=== PATIENT | male | born 1940 | race Caucasian/White ===

== ENCOUNTER 2017-05-03 05:36 | Inpatient (IN) | payer MEDICARE ==
[2017-05-03 09:26] LABS: Troponin I 0.127 ng/mL (< 0.028)
[2017-05-03 11:53] LABS: Troponin I 0.118 ng/mL (< 0.028)
--- NOTE | 2017-05-03 11:59 | HP ---
HISTORY OF PRESENT ILLNESS: Mr. Perez is a 76-year-old man. He came to this facility earlier today with complaint of shortness of breath, which suddenly got worse while he was sleeping. He came to the ER. He is being admitted for management and evaluation. He denies any associated fever. He does have a history of chronic cough. Denies any chest pain and he uses oxygen at home. PAST MEDICAL HISTORY: He is not known to have any history of COPD, hypertension, coronary artery dis ease, TIA and also he claims that he has asthma since childhood. PAST SURGICAL HISTORY: Remarkable for left carotid endarterectomy. ALLERGIES: He has an allergy to VANCOMYCIN. SOCIAL HISTORY: He has a [id number] history of cigarette smoking. He drinks two cans of beer ever y night. FAMILY HISTORY: Reviewed and is not contributory. MEDICATIONS: Prior to admission, he was on aspirin 81 mg daily, digoxin 0.125 mg daily, Toprol-XL 50 mg daily, Ventolin inhaler. REVIEW OF SYSTEMS: CONSTITUTIONAL: Denies any fever, denies weakness. HEENT: No headache. No ocular pain, no sore throat, no rhinorrhea, no earache, no epistaxis. NECK: No neck pain, no neck stiffness. CARDIOVASCULAR: Admits to shortness of breath. No chest pain. PULMONARY: He has chronic dry cough. GASTROINTESTINAL: No nausea, no vomiting, no diarrhea, no abdominal pain. GENITOURINARY: No dysuria, no hematuria. MUSCULOSKELETAL: Denies arthralgia, denies myalgia. SKIN: No rash, no itching. HEMATOLOGY: No abnormal bleeding, no ecchymosis. LYMPHATIC: No palpable lymphadenopathy, no painful lymphadenopathy. ENDOCRINOLOGY: No heat or cold intolerance. No polyuria, polydipsia, polyphagia. ALLERGIES: No hayfever. PSYCHIATRIC: No anxiety, no depression. NEUROLOGIC: No seizure. PHYSICAL EXAMINATION: GENERAL: At the current time, he is alert, oriented, receiving oxygen via nasal cannula. VITAL SIGNS: His latest vital signs show temperature of 98.1, pulse rate 82 regular, respiratory rat e 18, blood pressure 136/74. HEENT: Head is normocephalic and atraumatic. Both pupils are equally reactive. Ears and nose jermaine l. Oral mucosa is moist. Pharyngeal area is clear. NECK: Supple. There is no distention of the jugular vein. No lymphadenopathy felt. Thyroid gland not palpable. There is no carotid bruit. CHEST: Symmetrical with regular S1, S2. LUNGS: Show diffuse wheezing. ABDOMEN: Soft. Bowel sounds heard. Could not appreciate any organomegaly. There is no focal area of tenderness. EXTREMITIES: Limbs show no edema. NEUROLOGIC: He moves all extremities. LABORATORY DATA: His chemistry and electrolytes done at [facility] show a sodium of 143, potas sium 5.1, chloride 105, CO2 24, BUN 21, creatinine 1.3, glucose 132, calcium 8.8, total bilirubin 0.4 , total protein 7. Troponin was noticed to be elevated at 0.15. CT angiogram done and was negative. CBC showed WBC of 10.5, hemoglobin of 14, hematocrit of 42.8, MCV of 100.4, platelet of 153. D-dim er was elevated at 0.48 and as mentioned earlier, CT angiogram was negative. Chest x-ray done from [facility] was reported to show left lower lobe infiltrate which is chronic according to the report. ASSESSMENT AND PLAN: This is a 76-year-old man with history of hypertension, coronary jolanta ry disease, previous transient ischemic attack, chronic obstructive pulmonary disease who is being ad mitted for acute exacerbation of chronic obstructive pulmonary disease. The patient was noticed to h ave an elevated troponin. We will get Cardiology input. Will follow up troponins and he wants to be full code. He will be admitted to telemetry. Please see orders.
[2017-05-03] MEDS ORDERED: Ondansetron ODT 4 MG TAB PO PRN (12:28)
[2017-05-03] MEDS ORDERED: Bisacodyl 5 MG TAB PO PRN (12:28)
[2017-05-03 12:29] VITALS: BMI 23.6
[2017-05-03 12:55] LABS: Anion Gap 15 mmol/L (10-20); BUN (Urea Nitrogen) 21 mg/dL (8.4-25.7); BUN/Creatinine Ratio 15.11; Calc. Creatinine Clearance 50 mL/min (70-130); Calcium 9.1 mg/dL (7.8-10.44); Carbon Dioxide 29 mmol/L (23-31); Chloride 100 mmol/L (98-107); Estimated GFR-MDRD 50; Phosphorus 3.2 mg/dL (2.3-4.7)
[2017-05-03 13:03] LABS: Hematocrit 41.8 % (42.0-52.0); Red Blood Cell (RBC) Count 4.06 mill/uL (4.70-6.10); White Blood Cell (WBC) Count 6.5 thou/uL (4.8-10.8)
[2017-05-03] MEDS: Sodium Chloride 0.9% 1,000 ML IV SCH (13:25)
[2017-05-03 13:32] LABS: Band 9 % (5-11); Macrocytosis SLIGHT = 6-15 cells (100X) (0-5/hpf); Neutrophil 78 % (42-75); Reactive Lymphocytes 2 % (0-10)
[2017-05-03 15:11] LABS: Troponin I 0.119 ng/mL (< 0.028)
[2017-05-03] MEDS ORDERED: Digoxin 0.125 MG TAB PO SCH (15:30)
[2017-05-03] MEDS: Budesonide 0.25 MG/2 ML NEB INH SCH (19:25)
[2017-05-03] MEDS: Mometasone 100 MCG HFA INHALER INH SCH (19:28)
[2017-05-03] MEDS ORDERED: Sodium Chloride 0.9% 10 ML ONE (20:41)
[2017-05-03] MEDS: Famotidine 20 MG TAB PO SCH (21:12)
[2017-05-03] MEDS: methylPREDNISolone Sod Succ/PF 125 MG/2 ML VIAL IVP SCH (21:12)
[2017-05-03] MEDS: Nicotine 21 MG PATCH TD SCH (21:15)
[2017-05-04] MEDS: Mometasone 100 MCG HFA INHALER INH SCH ×2 (07:25→19:10)
[2017-05-04] MEDS: Budesonide 0.25 MG/2 ML NEB INH SCH ×2 (07:25→19:09)
[2017-05-04] MEDS: Enoxaparin Sodium 40 MG/0.4 ML SYRINGE SC SCH (07:50)
[2017-05-04] MEDS: Sodium Chloride 0.9% 1,000 ML IV SCH (07:50)
[2017-05-04] MEDS: Digoxin 0.125 MG TAB PO SCH (07:51)
[2017-05-04] MEDS: methylPREDNISolone Sod Succ/PF 125 MG/2 ML VIAL IVP SCH ×2 (07:51→20:50)
[2017-05-04] MEDS: Famotidine 20 MG TAB PO SCH ×2 (07:52→20:50)
[2017-05-04] MEDS ORDERED: FLU VACC TS2017-18 (>65YR) 0.5 ML SYRINGE IM ONE (09:00)
[2017-05-04] MEDS ORDERED: Digoxin 0.125 MG TAB PO SCH (09:00)
[2017-05-04] MEDS ORDERED: Cefdinir 300 MG CAP PO SCH (10:30)
--- NOTE | 2017-05-04 13:39 | PDOC.FM ---
- Subjective Subjective: Transfer of care from [facility]. PCP is Dr. Aguilera. Patient presented with sudden onset dyspnea. He denies any prior history of sudden onset shortness of breath. Patient has a history of an KS and cardio diagnosed in Jun/Jul. He was sent home on antibiotics after that hospitalization. He returned less than a month later with a second infection. At some point he was told he had an infection of the heart, which was presumably endocarditis. He does have history of COPD for which he has an oxygen tank at home. He only uses his oxygen PRN. Patient denies PND or lower extremity swelling. He denies fever or chills. Patient does endorse a mild, dry cough. - Objective MAR Reviewed: Yes Vital Signs & Weight: Vital Signs (12 hours) Temp Pulse Resp BP Pulse Ox 05/04/17 12:15 98.0 F 94 16 155/81 H 92 L 05/04/17 08:05 97.9 F 82 16 05/04/17 08:02 97.9 F 82 16 140/73 93 L 05/04/17 07:25 87 20 92 L 05/04/17 07:23 87 20 92 L 05/04/17 04:26 98.3 F 82 20 147/70 H 94 L 05/04/17 02:00 79 18 93 L 05/04/17 01:56 87 20 92 L Weight Weight 76.566 kg I&O: 05/03/17 05/04/17 05/05/17 06:59 06:59 06:59 Intake Total 1793 Output Total 1300 300 Balance 493 -300 Result Diagrams: 05/03/17 08:27 05/03/17 11:17 EKG Reviewed by me: No Radiology Reviewed by me: Yes <Alise Coleman - Last Filed: 05/04/17 14:03> - Objective Vital Signs & Weight: Vital Signs (12 hours) Temp Pulse Resp BP Pulse Ox 05/04/17 12:15 98.0 F 94 16 155/81 H 92 L 05/04/17 08:05 97.9 F 82 16 05/04/17 08:02 97.9 F 82 16 140/73 93 L 05/04/17 07:25 87 20 92 L 05/04/17 07:23 87 20 92 L 05/04/17 04:26 98.3 F 82 20 147/70 H 94 L Weight Weight 168 lb 12.8 oz I&O: 05/03/17 05/04/17 05/05/17 06:59 06:59 06:59 Intake Total 1793 Output Total 1300 300 Balance 493 -300 Result Diagrams: 05/03/17 08:27 05/03/17 11:17 <Harry Bowles - Last Filed: 05/04/17 14:08> Phys Exam - Physical Examination Constitutional: NAD HEENT: PERRLA, moist MMs, sclera anicteric Neck: supple Diffuse wheezing Cardiovascular: RRR, no significant murmur Gastrointestinal: soft, non-tender, no distention Musculoskeletal: no edema, pulses present Neurological: non-focal Psychiatric: A&O x 3 Skin: cap refill <2 seconds <Alise Coleman - Last Filed: 05/04/17 14:03> Dx/Plan (1) COPD exacerbation Code(s): J44.1 - CHRONIC OBSTRUCTIVE PULMONARY DISEASE W (ACUTE) EXACERBATION Status: Acute (2) Coronary artery disease Code(s): I25.10 - ATHSCL HEART DISEASE OF [place] CORONARY ARTERY W/O ANG PCTRS Status: Chronic (3) History of cardioembolic cerebrovascular accident (CVA) Code(s): Z86.73 - PRSNL HX OF TIA (TIA), AND CEREB INFRC W/O RESID DEFICITS Status: Chronic (4) HTN (hypertension) Code(s): I10 - ESSENTIAL (PRIMARY) HYPERTENSION Status: Chronic QualifierTitle: Hypertension type: essential hypertension Qualified Code( s): I10 - Essential (primary) hypertension - Plan Plan: Plan: 1. COPD with exacerbation - Symptomatic COPD exacerbation (wheezing, cough) - Duonebs - Steroids - Continue cefdinir - Oxygen PRN - Restart home medications; encourage use of home medications 2. HTN - Fairly well controlled - Home medications include metoprolol 3. CAD - On BB - Continue ASA 4. Hx of cardioembolic cerebral vascular accident - Continue ASA <Alise Coleman - Last Filed: 05/04/17 14:03> Attending Addendum - Attending Addendum I personally evaluated the patient and discussed the management with Dr. Coleman I agree with the History, Examination, Assessment and Plan documented above with any addition or exceptions noted below. <Harry Bowles - Last Filed: 05/04/17 14:08>
[2017-05-04] MEDS: Cefdinir 300 MG CAP PO SCH (20:50)
[2017-05-04] MEDS: guaiFENesin ER 600 MG TAB PO SCH (20:50)
[2017-05-04] MEDS: Nicotine 21 MG PATCH TD SCH (20:53)
[2017-05-05] MEDS ORDERED: Albuterol Sulfate 2.5 mg/3 ml Neb NEB SCH (01:45)
[2017-05-05] MEDS ORDERED: Acetaminophen 325 MG TAB PO PRN (02:29)
[2017-05-05 02:32] LABS: Oxyhemoglobin 96.6 % (94.0-97.0)
[2017-05-05 02:33] LABS: Modified Allen's Test POSITIVE; Sodium 139 mmol/L (135-148); Vent NO
[2017-05-05 02:34] LABS: Mode Nasal Cannula
[2017-05-05 02:48] LABS: Troponin I 0.074 ng/mL (< 0.028)
--- NOTE | 2017-05-05 04:27 | PDOC.EVN ---
Event Note - Event Note Event Note: Called to inform patient has increased work of breathing, RR and o2 requirement. Patient was breathing about 24 times a minute and had diffuse wheezing. he stated recent duoneb treatment improved his breathing significantly but he was still SOB. HR was 92. He had CTA yesterday to rule out PE and he had no new leg pain or swelling and was on ppx lovenox. He did not have chest pain or pressure. Working diagnosis was COPD exacerbation. Ordered albuterol treatment, ABG, CXR , and troponin. Reevaluated patient after intervention. Wheezing still present but now more comfortably with less WOB. RR decreased to 20. ABG showed 51 of CO2 consistent with respiratory acidosis consistent with COPD. EKG was unchanged from previous. Troponin was down trending from prior. CXR was unchanged from previous. With improved clinical status, it was decided to not order CTA or D dimer at this time. Scheduled duonebs q4 for improved treatment of his COPD, continued steroids. Decreased o2 based on ABG.
--- NOTE | 2017-05-05 06:26 | PDOC.FM ---
Addendum entered and electronically signed by Adonis Epps DO 05/05/17 09: 59: Upper Level Note: Patient breathing improved this morning. He reports no shortness of breath or chest pain this morning Vitals BP 172/86 RR 16 O2 95% on 2L Temp 98.6 Exam: NAD, A&Ox3. Regular rate and rhythm with no murmurs, rubs, or gallops. Lungs with diffuse wheezing. Work of breathing improved A/P: 1) COPD with exacerbation - Continue steroids, antibiotics, and scheduled DuoNebs. Continue oxygen supplementation. Likely needs more time on these medications to return to baseline 2) Htn - Home meds Agree with assessment and plan as listed by Dr. Coleman Original Note: - Subjective Subjective: Patient doing well this AM. He did have an episode last night where he got short of breath and tachypneic. The night team went to evaluate him at that time. A nebulizer treatment was ordered, and his shortness of breath improved. However, the wheezing remained diffuse. An ABG was ordered which showed elevated CO2 consistent with COPD. CXR was performed which was unchanged from previous imaging. Patient is doing much better this morning symptomatically, although he does continue to have diffuse wheezing throughout. He denies any shortness of breath, chest pain, or edema. - Objective MAR Reviewed: Yes Vital Signs & Weight: Vital Signs (12 hours) Temp Pulse Resp BP Pulse Ox 05/05/17 03:43 98.8 F 104 H 18 172/88 H 92 L 05/05/17 02:15 62 20 95 05/05/17 00:51 104 H 20 92 L 05/05/17 00:50 94 L 05/05/17 00:39 94 L 05/04/17 19:35 99.1 F 90 20 145/72 H 91 L 05/04/17 19:09 102 H 20 94 L Weight Weight 76.158 kg I&O: 05/03/17 05/04/17 05/05/17 06:59 06:59 06:59 Intake Total 1793 700 Output Total 1300 1000 Balance 493 -300 Result Diagrams: 05/03/17 08:27 05/03/17 11:17 EKG Reviewed by me: Yes Radiology Reviewed by me: Yes <Alise Coleman - Last Filed: 05/05/17 08:27> - Objective Vital Signs & Weight: Vital Signs (12 hours) Temp Pulse Resp BP Pulse Ox 05/05/17 10:10 91 16 94 L 05/05/17 09:25 110 H 05/05/17 08:10 98.1 F 57 L 20 150/70 H 94 L 05/05/17 07:16 93 16 95 05/05/17 07:15 86 16 95 05/05/17 07:13 86 16 95 05/05/17 03:43 98.8 F 104 H 18 172/88 H 92 L 05/05/17 02:15 62 20 95 05/05/17 00:51 104 H 20 92 L 05/05/17 00:50 94 L 05/05/17 00:39 94 L Weight Weight 167 lb 14.4 oz I&O: 05/04/17 05/05/17 05/06/17 06:59 06:59 06:59 Intake Total 1793 700 Output Total 1300 1000 Balance 493 -300 Result Diagrams: 05/05/17 08:40 05/05/17 08:40 <Harry Bowles - Last Filed: 05/05/17 10:52> Phys Exam - Physical Examination Constitutional: NAD HEENT: moist MMs, sclera anicteric Neck: supple Respiratory: wheezing present Diffuse wheezing throughout Cardiovascular: RRR Distanat heart sounds Gastrointestinal: soft, non-tender, no distention, positive bowel sounds Musculoskeletal: pulses present Neurological: non-focal, moves all 4 limbs Psychiatric: A&O x 3 Skin: cap refill <2 seconds <Alise Coleman - Last Filed: 05/05/17 08:27> Dx/Plan (1) COPD exacerbation Code(s): J44.1 - CHRONIC OBSTRUCTIVE PULMONARY DISEASE W (ACUTE) EXACERBATION Status: Acute (2) Coronary artery disease Code(s): I25.10 - ATHSCL HEART DISEASE OF [place] CORONARY ARTERY W/O ANG PCTRS Status: Chronic (3) History of cardioembolic cerebrovascular accident (CVA) Code(s): Z86.73 - PRSNL HX OF TIA (TIA), AND CEREB INFRC W/O RESID DEFICITS Status: Chronic (4) HTN (hypertension) Code(s): I10 - ESSENTIAL (PRIMARY) HYPERTENSION Status: Chronic QualifierTitle: Hypertension type: essential hypertension Qualified Code( s): I10 - Essential (primary) hypertension - Plan Plan: 1. COPD with exacerbation - COPD exacerbation - Duonebs - Steroids - Continue cefdinir - Oxygen PRN - Restart home medications; encourage use of home medications - ABG ordered yesterday which showed elevated CO2 consistent with COPD - CXR ordered last night which was unchanged from previous CXR - Troponins downtrended - EKG nml 2. HTN - Fairly well controlled - Home medications include metoprolol 3. CAD - On BB - Continue ASA 4. Hx of cardioembolic cerebral vascular accident - Continue ASA <Alise Coleman - Last Filed: 05/05/17 08:27> Attending Addendum - Attending Addendum I personally evaluated the patient and discussed the management with Dr. Coleman I agree with the History, Examination, Assessment and Plan documented above with any addition or exceptions noted below. Patient is still having some problems breathing as noted above. He is requiring 2liters Oxygen now. He has O2 at home, although he rarely uses it. We will continue steroids, nebulizer, and antibiotics. He is still wheezing. Follow closely. <Harry Bowles - Last Filed: 05/05/17 10:52>
[2017-05-05] MEDS: Budesonide 0.25 MG/2 ML NEB INH SCH ×2 (07:15→18:54)
[2017-05-05] MEDS: Mometasone 100 MCG HFA INHALER INH SCH ×2 (07:16→18:55)
--- NOTE | 2017-05-05 07:22 | RAD ---
PORTABLE CHEST 1 VIEW: Date: 05/05/17 Time: 0109 hours HISTORY: Shortness of breath. FINDINGS: Comparison made with exam of 05/03/17. The heart size is normal. The aorta is tortuous. Chronic changes in the lung diamond are again seen bi laterally. No lobar consolidation, pneumothoraces, or pleural effusions are identified. IMPRESSION: No acute process. POS: OFF
[2017-05-05 09:07] LABS: #Lymphocytes 0.8 thou/uL (1.20-3.40); #Monocytes 0.7 thou/uL (0.11-0.59); #Neutrophils 9.5 thou/uL (1.40-6.50); %Basophils 0.2 % (0.0-1.0); %Eosinophils 0.2 % (0.0-10.0); %Lymphocytes 6.9 % (21.0-51.0); %Monocytes 6.6 % (0.0-10.0); Hematocrit 40.1 % (42.0-52.0); Mean Platelet Volume 9.7 fL (7.4-10.4); Red Blood Cell (RBC) Count 3.89 mill/uL (4.70-6.10)
[2017-05-05] MEDS: Cefdinir 300 MG CAP PO SCH ×2 (09:25→20:47)
[2017-05-05] MEDS: Digoxin 0.125 MG TAB PO SCH (09:25)
[2017-05-05] MEDS: Famotidine 20 MG TAB PO SCH ×2 (09:25→20:47)
[2017-05-05] MEDS: Enoxaparin Sodium 40 MG/0.4 ML SYRINGE SC SCH (09:27)
[2017-05-05] MEDS: guaiFENesin ER 600 MG TAB PO SCH ×2 (09:27→20:47)
[2017-05-05] MEDS: methylPREDNISolone Sod Succ/PF 125 MG/2 ML VIAL IVP SCH (09:27)
[2017-05-05 09:30] LABS: Anion Gap 12 mmol/L (10-20); BUN (Urea Nitrogen) 31 mg/dL (8.4-25.7); Calc. Creatinine Clearance 54 mL/min (70-130); Calcium 8.9 mg/dL (7.8-10.44); Carbon Dioxide 31 mmol/L (23-31); Chloride 103 mmol/L (98-107); Estimated GFR-MDRD 55
[2017-05-05] MEDS: Nicotine 21 MG PATCH TD SCH (20:47)
--- NOTE | 2017-05-06 05:50 | PDOC.FM ---
- Subjective Subjective: Patient doing well this AM. No significant overnight events. Patient denies shortness of breath or chest pain. He does report that his cough has become productive. He denies fever or chills. Patient expressed desire to go home. Explained that he would need to continue therapy as outpatient and follow closely with PCP to ensure resolution of symptoms. Patient was in agreement with this plan. The need for the addition of a BP medication was discussed. Patient was in agreement with the addition of BP medication. - Objective MAR Reviewed: Yes Vital Signs & Weight: Vital Signs (12 hours) Temp Pulse Resp BP Pulse Ox 05/06/17 04:00 97.9 F 88 18 175/99 H 96 05/06/17 01:34 91 18 90 L 05/06/17 00:00 98.3 F 84 20 158/76 H 90 L 05/05/17 22:10 97 16 97 05/05/17 20:50 97.7 F 93 20 93 L 05/05/17 20:45 97.7 F 93 20 170/91 H 93 L 05/05/17 18:52 89 16 91 L Weight Weight 76.158 kg I&O: 05/04/17 05/05/17 05/06/17 06:59 06:59 06:59 Intake Total 1793 700 Output Total 1300 1000 Balance 493 -300 Result Diagrams: 05/06/17 05:26 05/06/17 05:26 EKG Reviewed by me: No Radiology Reviewed by me: No <Alise Coleman - Last Filed: 05/06/17 08:27> - Objective Vital Signs & Weight: Vital Signs (12 hours) Temp Pulse Resp BP BP Pulse Ox 05/06/17 09:39 125/89 05/06/17 08:22 94 20 94 L 05/06/17 08:00 97.8 F 76 18 180/111 H 95 05/06/17 04:00 97.9 F 88 18 175/99 H 96 05/06/17 01:34 91 18 90 L 05/06/17 00:00 98.3 F 84 20 158/76 H 90 L Weight Weight 166 lb 12.8 oz I&O: 05/05/17 05/06/17 05/07/17 06:59 06:59 06:59 Intake Total 700 240 Output Total 1000 Balance -300 240 Result Diagrams: 05/06/17 05:26 05/06/17 05:26 <Harry Bowles Barb - Last Filed: 05/06/17 10:31> Phys Exam - Physical Examination Constitutional: NAD HEENT: moist MMs, sclera anicteric Neck: supple Respiratory: wheezing present Cardiovascular: RRR, no significant murmur Gastrointestinal: soft, non-tender Musculoskeletal: no edema, pulses present Neurological: non-focal Psychiatric: A&O x 3 Skin: cap refill <2 seconds <Alise Coleman - Last Filed: 05/06/17 08:27> Dx/Plan (1) COPD exacerbation Code(s): J44.1 - CHRONIC OBSTRUCTIVE PULMONARY DISEASE W (ACUTE) EXACERBATION Status: Acute (2) Coronary artery disease Code(s): I25.10 - ATHSCL HEART DISEASE OF [place] CORONARY ARTERY W/O ANG PCTRS Status: Chronic (3) History of cardioembolic cerebrovascular accident (CVA) Code(s): Z86.73 - PRSNL HX OF TIA (TIA), AND CEREB INFRC W/O RESID DEFICITS Status: Chronic (4) HTN (hypertension) Code(s): I10 - ESSENTIAL (PRIMARY) HYPERTENSION Status: Chronic QualifierTitle: Hypertension type: essential hypertension Qualified Code( s): I10 - Essential (primary) hypertension - Plan Plan: Plan: 1. COPD with exacerbation - [facility] - Continue cefdinir - Patient advised that he will be discharged on O2. May be able to come off of O2 once recovered - Continue home medications - Discussed d/c with close follow up from PCP 2. HTN - Home medications include metoprolol - BP has continue to rise, will add DOUG-I 3. CAD - On BB - Continue ASA 4. Hx of cardioembolic cerebral vascular accident - Continue ASA Disposition: Plan for d/c today with close follow up from PCP <Alise Coleman - Last Filed: 05/06/17 08:27> Attending Addendum - Attending Addendum I personally evaluated the patient and discussed the management with Dr. Coleman I agree with the History, Examination, Assessment and Plan documented above with any addition or exceptions noted below. Patient seems to be at baseline with some wheezing, but without shortness of breath. We will discharge home to finish antibiotics and steroid taper. We emphasized need to stop smoking. <Harry Bowles - Last Filed: 05/06/17 10:31>
[2017-05-06 06:24] LABS: #Lymphocytes 1.8 thou/uL (1.20-3.40); #Neutrophils 7.2 thou/uL (1.40-6.50); %Eosinophils 0.4 % (0.0-10.0); %Lymphocytes 17.8 % (21.0-51.0); %Monocytes 10.2 % (0.0-10.0); Hematocrit 38.7 % (42.0-52.0); Mean Platelet Volume 9.4 fL (7.4-10.4); Red Blood Cell (RBC) Count 3.76 mill/uL (4.70-6.10); White Blood Cell (WBC) Count 10.1 thou/uL (4.8-10.8)
[2017-05-06 06:29] LABS: Anion Gap 8 mmol/L (10-20); BUN (Urea Nitrogen) 27 mg/dL (8.4-25.7); Calc. Creatinine Clearance 56 mL/min (70-130); Calcium 8.8 mg/dL (7.8-10.44); Carbon Dioxide 33 mmol/L (23-31); Chloride 102 mmol/L (98-107); Estimated GFR-MDRD 58
--- NOTE | 2017-05-06 08:00 | EKG ---
Test Reason : STAT Blood Pressure : / mmHG Vent. Rate : 093 BPM Atrial Rate : 093 BPM P-R Int : 128 ms QRS Dur : 094 ms QT Int : 374 ms P-R-T Axes : 086 008 086 degrees QTc Int : 465 ms Sinus rhythm with frequent Premature ventricular complexes with 4 cycles of Ventricular bigeminy. Cannot rule out Anterior infarct , age undetermined T wave abnormality, consider lateral ischemia Abnormal ECG When compared with ECG of 03-MAY-2017 15:44, (Unconfirmed) Premature ventricular complexes are now Present T wave inversion no longer evident in Inferior leads Confirmed by BIRD MORELAND ([id number]) on 05/06/2017 7:59:48 AM Referred By: Confirmed By:BIRD MORELAND
[2017-05-06] MEDS: Mometasone 100 MCG HFA INHALER INH SCH (08:24)
[2017-05-06] MEDS ORDERED: Lisinopril 10 MG TAB PO SCH (09:00)
[2017-05-06] MEDS: Digoxin 0.125 MG TAB PO SCH (09:38)
[2017-05-06] MEDS: Cefdinir 300 MG CAP PO SCH (09:38)
[2017-05-06] MEDS: guaiFENesin ER 600 MG TAB PO SCH (09:39)
[2017-05-06] MEDS: Enoxaparin Sodium 40 MG/0.4 ML SYRINGE SC SCH (09:39)
[2017-05-06] MEDS: Famotidine 20 MG TAB PO SCH (09:39)
[2017-05-06 12:58] VITALS: BP 156/84; TEMP 98.3
[2017-05-06] MEDS ORDERED: prednisoLONE 15 MG/5 ML UDCUP PO SCH (21:00)
== END 2017-05-06 12:55 | disposition home or self-care (01) | DRG 191 ==
LOC: ERS 05:36 → ERHOLD 08:53 → OBSVTOIN 08:53 → INTOOBSV 08:53 → 2NO 12:16
PROVIDERS: ADMIT Hospitalist; ATTEND Hospitalist
DX: J44.1 Chronic obstructive pulmonary disease with (acute) exacerbation (principal); E87.2 Acidosis; I25.2 Old myocardial infarction; I10 Essential (primary) hypertension; J45.909 Unspecified asthma, uncomplicated; F17.210 Nicotine dependence, cigarettes, uncomplicated; Z79.82 Long term (current) use of aspirin; I25.10 Atherosclerotic heart disease of native coronary artery without angina pectoris; Z86.73 Personal history of transient ischemic attack (TIA), and cerebral infarction without residual deficits
CPT/HCPCS: 36415; 71010; 80048; 80162; 82805; 84484; 85025; 87040; 90471; 90682; 93005; 93010; 94640; 94760; A4216; G0008; J1650; J2930; J7611; J7620; J7626; Q2036

== ENCOUNTER 2017-12-22 08:47 | Outpatient (CLI) | payer MEDICARE ==
[2017-12-22 10:25] LABS: Hemoglobin 16.4 g/dL (14.0-18.0); Mean Corpuscular HGB CONC 34.1 g/dL (32.0-36.0); Mean Corpuscular Hemoglobin 33.7 pg (27.0-31.0); Mean Corpuscular Volume 98.8 fL (78.0-98.0); Mean Platelet Volume 9.5 fL (7.4-10.4); Platelet Count 155 thou/uL (130-400); RBC Distribution Width 11.4 % (11.5-14.5); Red Blood Cell (RBC) Count 4.88 mill/uL (4.70-6.10); White Blood Cell (WBC) Count 7.9 thou/uL (4.8-10.8)
[2017-12-22 10:39] LABS: PTT 27.9 SEC (22.9-36.1); Prothrombin Time 13.2 SEC (12.0-14.7)
[2017-12-22 10:48] LABS: ALT (SGPT) 18 U/L (8-55); AST (SGOT) 20 U/L (5-34); Albumin 4.6 g/dL (3.4-4.8); Alkaline Phosphatase 71 U/L (40-150); Anion Gap 16 mmol/L (10-20); BUN (Urea Nitrogen) 31 mg/dL (8.4-25.7); Calc. Creatinine Clearance 0 mL/min (70-130); Calcium 9.6 mg/dL (7.8-10.44); Carbon Dioxide 29 mmol/L (23-31); Cardiac Risk 4.6 (Less than 4.5); Chloride 100 mmol/L (98-107); Cholesterol 181 mg/dl (< 200 Desired); Estimated GFR-MDRD 39; Globulin 2.5 g/dL (2.4-3.5); Glucose 100 mg/dL (83-110); HDL Cholesterol 39 mg/dL (>60 Neg Risk); LDL Cholesterol, Calculated 121 mg/dL; Potassium 4.9 mmol/L (3.5-5.1); Protein, Total 7.1 g/dL (5.8-8.1); Sodium 140 mmol/L (136-145); Triglycerides 103 mg/dL (Less than 150)
--- NOTE | 2017-12-22 12:30 | EKG ---
Test Reason : Blood Pressure : / mmHG Vent. Rate : 072 BPM Atrial Rate : 072 BPM P-R Int : 136 ms QRS Dur : 102 ms QT Int : 424 ms P-R-T Axes : 065 017 104 degrees QTc Int : 464 ms Normal sinus rhythm with sinus arrhythmia Septal infarct , age undetermined T wave abnormality, consider lateral ischemia Abnormal ECG Confirmed by DR. Emily BALBUENA MD ([id number]) on 12/22/2017 12:29:40 PM Referred By: GENARO Confirmed By:DR. Emily BALBUENA MD
== END 2017-12-22 08:48 | disposition home or self-care (01) ==
LOC: LABBT 08:47
PROVIDERS: ATTEND Internal Medicine Cardiovascular Disease
DX: Z01.810 Encounter for preprocedural cardiovascular examination (principal)
CPT/HCPCS: 80053; 80061; 85027; 85610; 85730; 93005; 93010

== ENCOUNTER 2017-12-29 05:33 | Day surgery (SDC) | payer MEDICARE ==
[2017-12-28 12:37] VITALS: BMI 23.7
[2017-12-29 06:47] LABS: Anion Gap 12 mmol/L (10-20); BUN (Urea Nitrogen) 23 mg/dL (8.4-25.7); Calc. Creatinine Clearance 44 mL/min (70-130); Calcium 9.4 mg/dL (7.8-10.44); Carbon Dioxide 29 mmol/L (23-31); Chloride 103 mmol/L (98-107); Estimated GFR-MDRD 43; Glucose 108 mg/dL (83-110); Potassium 4.4 mmol/L (3.5-5.1); Sodium 140 mmol/L (136-145)
[2017-12-29] MEDS ORDERED: Diazepam 5 MG TAB ONE (10:23)
[2017-12-29 11:31] LABS: Anion Gap 10 mmol/L (10-20); BUN (Urea Nitrogen) 22 mg/dL (8.4-25.7); Calc. Creatinine Clearance 45 mL/min (70-130); Carbon Dioxide 31 mmol/L (23-31); Chloride 103 mmol/L (98-107); Estimated GFR-MDRD 45; Glucose 97 mg/dL (83-110); Potassium 4.5 mmol/L (3.5-5.1); Sodium 139 mmol/L (136-145)
[2017-12-29] MEDS ORDERED: Lidocaine 1% (PF) 30 ML VIAL ONE (12:03)
[2017-12-29] MEDS ORDERED: Iopamidol 370 76% 100 ML VIAL ONE (13:16)
== END 2017-12-29 19:05 | disposition home or self-care (01) ==
LOC: CCL 05:33
PROVIDERS: ATTEND Internal Medicine Cardiovascular Disease
PROC: 4A023N7 Measurement of Cardiac Sampling and Pressure, Left Heart, Percutaneous Approach (ICD-10-PCS; principal; 2017-12-29)
PROC: B2111ZZ Fluoroscopy of Multiple Coronary Arteries using Low Osmolar Contrast (ICD-10-PCS; 2017-12-29)
DX: I25.10 Atherosclerotic heart disease of native coronary artery without angina pectoris (principal); I47.2 Ventricular tachycardia; I11.0 Hypertensive heart disease with heart failure; I50.22 Chronic systolic (congestive) heart failure; I42.9 Cardiomyopathy, unspecified; F17.210 Nicotine dependence, cigarettes, uncomplicated; E78.5 Hyperlipidemia, unspecified; F41.9 Anxiety disorder, unspecified; G47.00 Insomnia, unspecified; D64.9 Anemia, unspecified; J44.9 Chronic obstructive pulmonary disease, unspecified; N40.0 Benign prostatic hyperplasia without lower urinary tract symptoms; Z79.82 Long term (current) use of aspirin; Z79.899 Other long term (current) drug therapy; Z88.1 Allergy status to other antibiotic agents
CPT/HCPCS: 76942; 80048 ×2; 93454; C1769; 36415; J1644; J2001; J7620

== ENCOUNTER 2018-02-18 09:30 | Outpatient (CLI) | payer MEDICARE ==
[2018-02-18 11:04] LABS: Mean Corpuscular HGB CONC 32.3 g/dL (32.0-36.0); Mean Corpuscular Hemoglobin 32.7 pg (27.0-31.0); Mean Platelet Volume 9.7 fL (7.4-10.4); Platelet Count 168 thou/uL (130-400); Red Blood Cell (RBC) Count 4.59 mill/uL (4.70-6.10); White Blood Cell (WBC) Count 7.6 thou/uL (4.8-10.8)
[2018-02-18 11:20] LABS: PTT 27.1 SEC (22.9-36.1)
[2018-02-18 11:29] LABS: Anion Gap 10 mmol/L (10-20); BUN (Urea Nitrogen) 25 mg/dL (8.4-25.7); Calc. Creatinine Clearance 0 mL/min (70-130); Calcium 9.1 mg/dL (7.8-10.44); Carbon Dioxide 30 mmol/L (23-31); Chloride 104 mmol/L (98-107); Estimated GFR-MDRD 48; Glucose 91 mg/dL (83-110); Potassium 4.2 mmol/L (3.5-5.1); Sodium 140 mmol/L (136-145)
--- NOTE | 2018-02-21 17:38 | EKG ---
Test Reason : Blood Pressure : / mmHG Vent. Rate : 073 BPM Atrial Rate : 073 BPM P-R Int : 146 ms QRS Dur : 098 ms QT Int : 432 ms P-R-T Axes : 065 040 066 degrees QTc Int : 475 ms Poor data quality, interpretation may be adversely affected Sinus rhythm with frequent Premature ventricular complexes Septal infarct (cited on or before 05-MAY-2017) Abnormal ECG When compared with ECG of 22-DEC-2017 09:42, Premature ventricular complexes are now Present Questionable change in initial forces of Septal leads Nonspecific T wave abnormality now evident in Inferior leads Confirmed by GEMMA WANG ([id number]) on 02/21/2018 5:38:28 PM Referred By: [facility] Confirmed By:GEMMA WANG
== END 2018-02-18 09:31 | disposition home or self-care (01) ==
LOC: LABBT 09:30
PROVIDERS: ATTEND Internal Medicine Cardiovascular Disease
DX: Z01.818 Encounter for other preprocedural examination (principal)
CPT/HCPCS: 80048; 85027; 85610; 85730; 93005; 93010

== ENCOUNTER 2018-03-01 07:57 | Day surgery (SDC) | payer MEDICARE ==
[2018-02-18 09:55] VITALS: BMI 23.7
[2018-03-01] MEDS ORDERED: Lidocaine 1% (PF) 30 ML VIAL ONE (12:28)
[2018-03-01] MEDS ORDERED: PROPOFOL 200 MG/20 ML VIAL ONE (12:33)
[2018-03-01] MEDS ORDERED: Midazolam HCl 2 mg/2 ml Vial ONE (13:16)
[2018-03-01] MEDS ORDERED: Meperidine HCl/PF 25 MG/ML VIAL ONE (13:16)
[2018-03-01] MEDS ORDERED: Isoproterenol 0.2 MG/1 ML AMP ONE (14:14)
[2018-03-01] MEDS ORDERED: Lidocaine 1% w/Epinephrine 1:100K 30 ML VIAL ONE (14:31)
--- NOTE | 2018-03-01 21:14 | OP ---
DATE OF PROCEDURE: 03/01/2018 LOOP RECORDER IMPLANT REFERRING PHYSICIAN: Roly Motta M.D. REASON FOR PROCEDURE: Mr. Perez is a 77-year-old man with history of syncopal spells, who had no nsustained ventricular tachycardia. LV is borderline decreased 35% to 40%. He underwent an EP study , it was not inducible for VT, but had a sustained atrial fibrillation/flutter which required cardiov ersion. Here for a loop recorder implant for further monitoring of syncopal spells and atrial arrhyt hmias. PROCEDURE IN DETAIL: The left precordial area was prepped, draped and anesthetized using subcutaneou s lidocaine. With a standard tool kit, incision was made over the 4th intercostal space and a [employer] candace LINQ, model number LNQ11, serial number [id number] device inserted prepectorally. The wound was closed with Dermabond. CONCLUSION: Successful loop recorder implantation. PLAN: Routine monitoring.
--- NOTE | 2018-03-02 10:19 | OP ---
DATE OF PROCEDURE: 03/01/2018 REASON FOR PROCEDURE: Mr. Perez is a 77-year-old male with prior history of congestive heart failure and moderate reduced LVEF of 35-40%. He has nonsustained ventricular tachycardia and also EP study is planned to assess indication for ICD implant, Also his atrial arrhythmias. PROCEDURE: The patient received propofol by Anesthesia specialist. After adequate level of sedation achieved, the right femoral venous area was prepped. The area was anesthetized using subcutaneous lidocaine. With ultrasound guidance, the right femoral vein was cannulated. The right femoral venous access was used to advance a 6-Yi octapolar catheters to the right ventricular His bundle, right atrium. Pacing mapping and recording was performed in each location. FINDINGS: Baseline rhythm is sinus rhythm with cycle length of 826 milliseconds , UT 170, QRS 101 milliseconds, QT 369 milliseconds, AH 127 127, HV 50 milliseconds. Sinus node recovery time was 1200 milliseconds with corrected sinus node recovery time about 300 milliseconds. The AV Wenckebach cycled lentgh was predicted 330 milliseconds. The retrograde Wenckebach cycle length was 360 milliseconds. The AV tish ERP was 600/200 milliseconds. Ventricular ERP was 400/200 milliseconds. Burst atrial pacing induced atrial flutter with _ milliseconds, but with some variable RR interval. Following that, a standard ventricular excess to my study was performed. Ventricular ES testing with 500 milliseconds and 400 milliseconds drivetrains were used with up to 3 ventricular extrastimuli decremented to the refractory. No sustained ventricular tachycardia was induced. Couple of beats of nonsustained PVC runs are seen, only. At the end of the case, the patient was placed on Isuprel and the ventricular access stimuli testing was repeated again with the same findings. CONCLUSION: 1. No inducible ventricular tachycardia. 2. Inducible atypical atrial flutter is noted which was sustained requiring cardioversion. 3. Normal sinus and AV tish function. PLAN: Proceed with LINQ recorder monitoring. [facility]
== END 2018-03-01 17:20 | disposition home or self-care (01) ==
LOC: CCL 07:57
PROVIDERS: ATTEND Internal Medicine Cardiovascular Disease
PROC: 4A023FZ Measurement of Cardiac Rhythm, Percutaneous Approach (ICD-10-PCS; principal; 2018-03-01)
PROC: 4A0234Z Measurement of Cardiac Electrical Activity, Percutaneous Approach (ICD-10-PCS; 2018-03-01)
PROC: 0JH602Z Insertion of Monitoring Device into Chest Subcutaneous Tissue and Fascia, Open Approach (ICD-10-PCS; 2018-03-01)
DX: R55 Syncope and collapse (principal); I47.2 Ventricular tachycardia; I11.0 Hypertensive heart disease with heart failure; I50.22 Chronic systolic (congestive) heart failure; I48.91 Unspecified atrial fibrillation; I48.92 Unspecified atrial flutter; J44.9 Chronic obstructive pulmonary disease, unspecified; N28.9 Disorder of kidney and ureter, unspecified; E78.5 Hyperlipidemia, unspecified; I73.9 Peripheral vascular disease, unspecified; F17.210 Nicotine dependence, cigarettes, uncomplicated; Z86.73 Personal history of transient ischemic attack (TIA), and cerebral infarction without residual deficits; Z79.82 Long term (current) use of aspirin; Z79.899 Other long term (current) drug therapy; Z88.1 Allergy status to other antibiotic agents
CPT/HCPCS: 33282 ×2; 76942; 92960; 93620; C1730; C1764; C1769; J1644; J2001; J2175; J2250; J2704